=== PATIENT | female | born 1980 | race Caucasian/White ===

== ENCOUNTER 2021-10-03 09:09 | Outpatient (CLI) | payer OTHER ==
[~2021-10-03 09:09] MED LIST: Iopamidol 370 76% 100 ML VIAL ONE
== END 2021-10-03 09:10 | disposition home or self-care (01) ==
LOC: CT 09:09
PROVIDERS: ATTEND Internal Medicine Hematology & Oncology
DX: Z51.11 Encounter for antineoplastic chemotherapy (principal); C50.212 Malignant neoplasm of upper-inner quadrant of left female breast
CPT/HCPCS: 71260; 74177; 78306; 93306; A9503; Q9967

== ENCOUNTER 2022-03-03 21:35 | Emergency (ER) | payer OTHER | END 2022-03-04 00:34 | disposition home or self-care (01) | LOC: ERS 21:35 | DX: I82.411 Acute embolism and thrombosis of right femoral vein (principal); Z79.01 Long term (current) use of anticoagulants ==

== ENCOUNTER 2024-10-06 22:17 | Emergency (ER) | payer OTHER ==
[2024-10-06 22:56] LABS: #Basophils 0.06 10x3/uL (0.0-0.2); #Eosinophils 0.34 10x3/uL (0.0-0.7); #Monocytes 0.77 10x3/uL (0.11-0.59); #Neutrophils 5.37 10x3/uL (1.40-6.50); %Basophils 0.7 % (0.0-1.0); %Eosinophils 4.2 % (0.0-10.0); %Lymphocytes 18.6 % (21.0-51.0); %Monocytes 9.6 % (0.0-10.0); %Neutrophils 66.7 % (42.0-75.0); Hematocrit 38.7 % (36.0-47.0); Hemoglobin 12.5 g/dL (12.0-16.0); Mean Corpuscular Hemoglobin 30.5 pg (27.0-31.0); Mean Corpuscular Volume 94.4 fL (78.0-98.0); Platelet Count 207 10x3/uL (130-400); Red Blood Cell (RBC) Count 4.10 mill/uL (4.20-5.40); White Blood Cell (WBC) Count 8.06 10x3/uL (4.8-10.8)
[2024-10-06 23:09] LABS: ALT (SGPT) 10 U/L (Less than 34); AST (SGOT) 16 U/L (11-34); Albumin 3.9 g/dL (3.1-4.5); Alkaline Phosphatase 82 U/L (40-110); Anion Gap 16 mmol/L (10-20); BUN (Urea Nitrogen) 10 mg/dL (7.0-18.7); Bilirubin, Total 0.3 mg/dL (0.3-1.2); Calc. Creatinine Clearance 0 mL/min (70-130); Calcium 9.2 mg/dL (7.8-10.44); Carbon Dioxide 23 mmol/L (22-29); Chloride 105 mmol/L (98-107); Globulin 2.7 g/dL (2.4-3.5); Glucose 121 mg/dL (70-105); Potassium 3.8 mmol/L (3.5-5.1); Sodium 140 mmol/L (136-145)
[2024-10-07] MEDS ORDERED: HYDROcodone/Acetaminophen 5/325 mg Tablet ONE (00:17)
[2024-10-07] MEDS ORDERED: Ketorolac Tromethamine 30 MG (1 mL) VIAL ONE (00:17)
== END 2024-10-07 01:34 | disposition home or self-care (01) ==
LOC: ERS 22:17
DX: T24.211A Burn of second degree of right thigh, initial encounter (principal); T22.252A Burn of second degree of left shoulder, initial encounter; T24.222A Burn of second degree of left knee, initial encounter; T25.222A Burn of second degree of left foot, initial encounter; T23.172A Burn of first degree of left wrist, initial encounter; Z55.6 Problems related to health literacy; X10.1XXA Contact with hot food, initial encounter; Y93.G3 Activity, cooking and baking
CPT/HCPCS: 80053; 85025; 94760; 96374; G0390; J1885